=== PATIENT | male | born 1985 | race American Indian/Alaskan Native ===

== ENCOUNTER 2018-11-03 09:46 | Emergency (ER) | payer OTHER ==
[2018-11-03 10:00] VITALS: PULSE 92; TEMP 97.9; BMI 27.4
--- NOTE | 2018-11-03 10:06 | PDOC ---
History of Present Illness - General Chief Complaint: Pain Stated Complaint: NECK PAIN Time Seen by Provider: 11/03/18 10:05 History Source: Patient Exam Limitations: No Limitations - History of Present Illness Initial Comments: 11/03/18 10:26 Patient is a 33-year-old male past medical history of hypertension, who presents to the ER today for right-sided neck pain. Patient states his symptoms began approximately 1 week ago. He states that the pain starts in his neck and radiates down to his right shoulder. Patient states that he works in construction, however denies recent trauma or overuse injury. He states he recently did some new activity including crawling into small spaces and climbing on ladders. He states that it hurts to move his head [id number]. Denies headache, numbness and tingling to the extremities, weakness to the extremities, dizziness, lightheadedness, nausea and vomiting. Triage blood pressure noted 180/100. Pt states he took his amlodipine approximately 30 minutes ago. Timing/Duration: unsure Past History - Travel Traveled outside of the country in the last 30 days: No Close contact w/someone who was outside of country & ill: No - Past Medical History Allergies/Adverse Reactions: Allergies Allergy/AdvReac Type Severity Reaction Status Date / Time No Known Allergies Allergy Verified 11/03/18 09:58 Home Medications: Ambulatory Orders Amlodipine Besylate [Norvasc -] 5 mg PO PRN 11/03/18 Diazepam [Valium] 5 mg PO HS #7 tablet MDD 1 11/03/18 Ibuprofen 800 mg PO TID #30 tablet 11/03/18 COPD: No HTN: Yes - Immunization History Immunization Up to Date: Yes - Suicide/Smoking/Psychosocial Hx Smoking Status: No Smoking History: Smoker current status UNK Number of Cigarettes Smoked Daily: 0 Hx Alcohol Use: No Drug/Substance Use Hx: No Substance Use Type: None Review of Systems - Review of Systems Able to Perform ROS?: Yes Comments:: 11/03/18 10:18 CONSTITUTIONAL: Absent: fever, chills, diaphoresis, generalized weakness, malaise, loss of appetite HEENT: Absent: rhinorrhea, nasal congestion, throat pain, throat swelling, difficulty swallowing, mouth swelling, ear pain, eye pain, visual Changes CARDIOVASCULAR: Absent: chest pain, loss of consciousness, palpitations, irregular heart rate, peripheral edema RESPIRATORY: Absent: cough, shortness of breath, dyspnea with exertion, orthopnea, wheezing, stridor, hemoptysis GASTROINTESTINAL: Absent: abdominal pain, abdominal distension, nausea, vomiting, diarrhea, constipation, melena, hematochezia GENITOURINARY: Absent: dysuria, frequency, urgency, hesitancy, hematuria, flank pain, genital pain MUSCULOSKELETAL: Present: R sided neck pain Absent: myalgia, arthralgia, joint swelling SKIN: Absent: rash, itching, pallor HEMATOLOGIC/IMMUNOLOGIC: Absent: easy bleeding, easy bruising, lymphadenopathy, frequent infections ENDOCRINE: Absent: unexplained weight gain, unexplained weight loss, heat intolerance, cold intolerance NEUROLOGIC: Absent: headache, focal weakness or paresthesias, dizziness, unsteady gait, seizure, mental status changes, bladder or bowel incontinence PSYCHIATRIC: Absent: anxiety, depression, suicidal or homicidal ideation, hallucinations. Is the patient limited Indonesian proficient: No *Physical Exam - Vital Signs Last Vital Signs Temp Pulse Resp BP Pulse Ox 97.9 F 92 H 18 180/108 H 98 11/03/18 09:59 11/03/18 09:59 11/03/18 09:59 11/03/18 09:59 11/03/18 09:59 - Physical Exam Comments: 11/03/18 10:18 GENERAL: Well developed, well nourished. Awake and alert. No acute distress. HEENT: Normocephalic, atraumatic. PERRLA, EOMI. No conjunctival pallor. Sclera are non- icteric. Moist mucous membranes. Oropharynx is clear. NECK: TTP of the R parasinous muscles. Supple. Full ROM. No JVD. Carotid pulses 2+ and symmetric, without bruits. No thyromegaly. No lymphadenopathy. CARDIOVASCULAR: Regular rate and rhythm. No murmurs, rubs, or gallops. Distal pulses are 2+ and symmetric. PULMONARY: No evidence of respiratory distress. Lungs clear to auscultation bilaterally. No wheezing, rales or rhonchi. ABDOMINAL: Soft. Non-tender. Non-distended. No rebound or guarding. No organomegaly. Normoactive bowel sounds. MUSCULOSKELETAL Normal range of motion at all joints. No bony deformities or tenderness. No CVA tenderness. EXTREMITIES: No cyanosis. No clubbing. No edema. No calf tenderness. SKIN: Warm and dry. Normal capillary refill. No rashes. No jaundice. NEUROLOGICAL: Alert, awake, appropriate. Cranial nerves 2-12 intact. No deficits to light touch and temperature in face, upper extremities and lower extremities. No motor deficits in the in face, upper extremities and lower extremities. Normoreflexic in the upper and lower extremities. Normal speech. Toes are down- going bilaterally. Gait is normal without ataxia. PSYCHIATRIC: Cooperative. Good eye contact. Appropriate mood and affect. Moderate Sedation - Procedure Monitoring Vital Signs: Procedure Monitoring Vital Signs Temperature 97.9 F 11/03/18 09:59 Pulse Rate 92 H 11/03/18 09:59 Respiratory Rate 18 11/03/18 09:59 Blood Pressure 180/108 H 11/03/18 09:59 O2 Sat by Pulse Oximetry (%) 98 11/03/18 09:59 Medical Decision Making - Medical Decision Making 11/03/18 12:17 Patient is a 33-year-old male with past medical history of hypertension, who presents to the ER for one week of left-sided neck pain. On exam tenderness to palpation of the left trapezius, and post insertion of the neck and shoulder. Pain worse with movement Blood pressure elevated 170/100. I suspect this is because patient takes his blood pressure medication on an as-needed basis. Given symptoms lasting one week and reproducible low suspicion for dissection at this time. X-ray shows no acute pathology or fracture Patient reports relief of symptoms with lidocaine patch, Valium and Toradol. Most likely a musculoskeletal strain Advised patient to take his blood pressure medication every day given the high readings today. Pt denies headache, chest pain and shortness of breath at this time. Discharge home with PCP follow-up for both his blood pressure and neck pain I discussed the physical exam findings, ancillary test results and final diagnoses with the patient. I answered all of the patient's questions. The patient was satisfied with the care received and felt comfortable with the discharge plan and treatment plan. The Patient agrees to follow up with the primary care physician/specialist within 24-72 hours. Return precautions were given. *DC/Admit/Observation/Transfer Diagnosis at time of Disposition: Neck pain - Discharge Dispostion Disposition: HOME Condition at time of disposition: Stable Decision to Admit order: No - Prescriptions Prescriptions: Diazepam [Valium] 5 mg PO HS #7 tablet MDD 1 Ibuprofen 800 mg PO TID #30 tablet - Referrals Referrals: Jaswinder Sales MD [Primary Care Provider] - - Patient Instructions Printed Discharge Instructions: DI for Neck Pain Additional Instructions: You have neck pain. Your x-ray today showed no acute fracture. Please take Motrin 800 mg every 8 hours for one week. Take her amlodipine daily while taking the Motrin. Take the Valium before bed. Do not drive or drink alcohol after taking this medication as it may make you drowsy. He may apply heat to the area. Please help with her primary care doctor this week. Return to the ER if you have headache, nose and tingling down the extremities, weakness, blurry vision, or if you have any changes in your symptoms. - Post Discharge Activity Forms/Work/School Notes: Back to Work
[2018-11-03] MEDS ORDERED: diazePAM 2 MG TABLET PO ONE (10:14)
[2018-11-03] MEDS ORDERED: LIDOCAINE 5% TOPICAL PATCH TP ONE (10:14)
[2018-11-03] MEDS ORDERED: KETOROLAC TROMETHAMINE 60 MG/2 ML VIAL IM ONE (10:14)
[2018-11-03] MEDS ORDERED: diazePAM 2 MG TABLET ONE (10:25)
[2018-11-03] MEDS ORDERED: LIDOCAINE 5% TOPICAL PATCH ONE (10:26)
[2018-11-03] MEDS ORDERED: KETOROLAC TROMETHAMINE 60 MG/2 ML VIAL ONE (10:26)
--- NOTE | 2018-11-03 11:21 | PDOC ---
*Physical Exam - Vital Signs Last Vital Signs Temp Pulse Resp BP Pulse Ox 97.9 F 92 H 18 180/108 H 98 11/03/18 09:59 11/03/18 09:59 11/03/18 09:59 11/03/18 09:59 11/03/18 09:59 ED Treatment Course - Medications Given in the ED: ED Medications Discontinued Medications Generic Name Dose Route Start Last Admin Trade Name Brian PRN Reason Stop Dose Admin Diazepam 2 mg 11/03/18 10:14 11/03/18 10:36 Valium - PO 11/03/18 10:15 2 mg ONCE ONE Administration Ketorolac Tromethamine 60 mg 11/03/18 10:14 11/03/18 10:36 Toradol Injection - IM 11/03/18 10:15 60 mg ONCE ONE Administration Lidocaine 1 patch 11/03/18 10:14 11/03/18 10:36 Lidoderm Patch - TP 11/03/18 10:15 1 patch ONCE ONE Administration Medical Decision Making - Medical Decision Making 11/03/18 11:21 33 yo M presenting to the ER with a complaint of left neck pain Present for 1 week Gradual onset Pain with palpation No neurologic changes, weakness, numbness No trauma Pt seen by Midlevel Provider under my direct supervision Pt interviewed and examined Ancillary studies reviewed Lidoderm placed Pain meds given I agree with plan as outlined by Midlevel Provider 11/03/18 11:50 11/03/18 12:28 *DC/Admit/Observation/Transfer Diagnosis at time of Disposition: Neck pain - Discharge Dispostion Disposition: HOME Condition at time of disposition: Stable - Prescriptions Prescriptions: Diazepam [Valium] 5 mg PO HS #7 tablet MDD 1 Ibuprofen 800 mg PO TID #30 tablet - Referrals Referrals: Jaswinder Sales MD [Primary Care Provider] - - Patient Instructions Printed Discharge Instructions: DI for Neck Pain Additional Instructions: You have neck pain. Your x-ray today showed no acute fracture. Please take Motrin 800 mg every 8 hours for one week. Take her amlodipine daily while taking the Motrin. Take the Valium before bed. Do not drive or drink alcohol after taking this medication as it may make you drowsy. He may apply heat to the area. Please help with her primary care doctor this week. Return to the ER if you have headache, nose and tingling down the extremities, weakness, blurry vision, or if you have any changes in your symptoms. - Post Discharge Activity Forms/Work/School Notes: Back to Work
[2018-11-03 12:35] VITALS: BP 169/109
[2018-11-03] MEDS ORDERED: LIDOCAINE PATCH REMOVAL MC SCH (22:00)
== END 2018-11-03 13:21 | disposition home or self-care (01) ==
LOC: JER 09:46
PROC: 3E0233Z Introduction of Anti-inflammatory into Muscle, Percutaneous Approach (ICD-10-PCS; principal; 2018-11-03)
DX: M54.2 Cervicalgia (principal); I10 Essential (primary) hypertension
CPT/HCPCS: 72050-TC-FY; 99282-25

== ENCOUNTER 2019-05-01 18:58 | Emergency (ER) | payer OTHER ==
[2019-05-01 19:04] VITALS: BP 143/84; PULSE 61; TEMP 97.7; BMI 28.2
--- NOTE | 2019-05-01 19:05 | PDOC ---
Rapid Medical Evaluation Chief Complaint: Hemoptysis Time Seen by Provider: 05/01/19 19:01 Medical Evaluation: Allergies Allergy/AdvReac Type Severity Reaction Status Date / Time No Known Allergies Allergy Verified 11/03/18 09:58 05/01/19 19:04 This patient had a brief in-person evaluation in triage cc: coughing x 2 weeks, coughing with bloody sputum today complaining of shortness of breath HPI: NAD clear breaths bilateral diminished breathing orders: chest xray This patient will proceed to ED for further evaluation. Discharge Disposition - Diagnosis Coughing up blood - Referrals - Patient Instructions - Post Discharge Activity
[2019-05-01] MEDS ORDERED: predniSONE 10 MG TABLET (UD) PO ONE (20:38)
[2019-05-01] MEDS ORDERED: ALBUTEROL SO4 2.5/IPRATROPIUM 0.5 INH SOL 3 ML VIAL.NEB. NEB ONE ×2 (20:38→21:01)
--- NOTE | 2019-05-01 20:49 | PDOC ---
History of Present Illness - General Chief Complaint: Hemoptysis Stated Complaint: COUGHING/SPUTUM WITH BLOOD Time Seen by Provider: 05/01/19 19:01 - History of Present Illness Initial Comments: 05/01/19 20:39 33m with pmh of htn presetns to the Ed with 2 weeks of daily coughing as blood tinge sputum last night and this morning. Has had similar symptoms before in 2016 treated in this ED, diagnosed with simple URI. Patient also complains that he has decreased exercise tolerance since then. Coworker had the same symptoms 2 weeks ago that self-resolved. 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 No contact with bat feces as far as knows. No contacts with people from out of the country. No recent travel. No fever, chills, weight loss. Past History - Past Medical History Allergies/Adverse Reactions: Allergies Allergy/AdvReac Type Severity Reaction Status Date / Time No Known Allergies Allergy Verified 05/01/19 19:04 Home Medications: Ambulatory Orders Amlodipine Besylate [Norvasc -] 5 mg PO PRN 11/03/18 Diazepam [Valium] 5 mg PO HS #7 tablet MDD 1 11/03/18 Ibuprofen 800 mg PO TID #30 tablet 11/03/18 predniSONE [Deltasone -] 30 mg PO DAILY #3 tablet 05/01/19 COPD: No HTN: Yes - Immunization History Immunization Up to Date: Yes - Suicide/Smoking/Psychosocial Hx Smoking Status: No Smoking History: Never smoked Number of Cigarettes Smoked Daily: 0 Information on smoking cessation initiated: No Hx Alcohol Use: No Drug/Substance Use Hx: No Substance Use Type: None Review of Systems - Review of Systems Able to Perform ROS?: Yes Is the patient limited Icelandic proficient: No Constitutional: No: Symptoms Reported HEENTM: No: Symptoms Reported Respiratory: Yes: Cough, Hemoptysis Cardiac (ROS): No: Symptoms Reported ABD/GI: No: Symptoms Reported : No: Symptoms Reported Musculoskeletal: No: Symptoms Reported Integumentary: No: Symptoms Reported Neurological: No: Symptoms reported All Other Systems: Reviewed and Negative *Physical Exam - Vital Signs Last Vital Signs Temp Pulse Resp BP Pulse Ox 97.7 F 61 19 143/84 99 05/01/19 19:02 05/01/19 19:02 05/01/19 19:02 05/01/19 19:02 05/01/19 19:02 - Physical Exam General Appearance: Yes: Nourished, Appropriately Dressed. No: Apparent Distress HEENT: positive: EOMI, KANE, Normal ENT Inspection Respiratory/Chest: positive: Lungs Clear. negative: Chest Tender, Normal Breath Sounds, Respiratory Distress Cardiovascular: positive: Regular Rhythm, Regular Rate, S1, S2 Gastrointestinal/Abdominal: positive: Normal Bowel Sounds, Flat, Soft. negative : Tender Musculoskeletal: positive: Normal Inspection. negative: CVA Tenderness Extremity: positive: Normal Capillary Refill, Normal Inspection, Normal Range of Motion Integumentary: positive: Normal Color, Dry, Warm Neurologic: positive: Fully Oriented, Alert, Normal Mood/Affect, Normal Response , Motor Strength 5/5 Medical Decision Making - Medical Decision Making 05/01/19 20:51 33m with dry cough for 2 weeks and hemoptysis since last night, 2 episodes. Considering lung cancer, tuberculosis, pneumonia, bronchiolitis, anemia Xray negative for acute pathology. Will give patient Duoneb treatment and Prednisone. Likely Viral bronchitis. Patient feels better with treatment. Likely will discharge with follow up with Dr. Sales in 2 days. *DC/Admit/Observation/Transfer Diagnosis at time of Disposition: Coughing up blood, Viral bronchitis - Discharge Dispostion Disposition: HOME Condition at time of disposition: Improved Decision to Admit order: No - Referrals Referrals: Jaswinder Sales MD [Primary Care Provider] - - Patient Instructions Printed Discharge Instructions: DI for Chronic Bronchitis Additional Instructions: Follow up with Dr. Sales within the next 2-3 days. Come back to the emergency department for any new, worsening or concerning symptom. - Post Discharge Activity
--- NOTE | 2019-05-01 20:50 | PDOC ---
Documentation entered by Germania Ferrera SCRIBE, acting as scribe for Marlys Munguia MD. Marlys Munguia MD: This documentation has been prepared by the Maisha dai Brenda, SCRIBE, under my direction and personally reviewed by me in its entirety. I confirm that the documentation accurately reflects all work, treatment, procedures, and medical decision making performed by me. Attending Attestation - Resident Resident Name: Robert Harris - ED Attending Attestation I have performed the following: I have examined & evaluated the patient, The case was reviewed & discussed with the resident, I agree w/resident's findings & plan, Exceptions are as noted - HPI HPI: 05/01/19 20:30 The patient is a 33 year old male, with a significant PMH of HTN who presents to the emergency department with 2 weeks of coughing. The patient reports progressively worsening cough, which progressed into blood sputum today, prompting his arrival to the ED. The patient also endorses shortness of breath. The patient denies chest pain, headache and dizziness. Denies fever, chills, nausea, vomiting, diarrhea and constipation. Denies dysuria, frequency, urgency and hematuria. Allergies: NKA Social history: No reported history of tobacco use, alcohol use or illicit drug use. PCP: Mónica - Physicial Exam PE: 05/01/19 20:47 well-nourished well-developed 33-year-old male presents with complaint of 2 weeks of dry hacking cough. Head normocephalic/atraumatic. Neck is supple Lungs are clear to auscultation, no wheezing and no appreciable crackles CVS regular rate and rhythm S1, S2 no CVA tenderness Abdomen soft, nontender. Skin warm and dry. extremities no pitting edema, no deformities Neuro alert and oriented 3, ambulatory, no gross focal neural deficits - Medical Decision Making 05/01/19 20:47 -year-old male who states that his coworkers have had a dry hacking cough and he has had one for 2 weeks. he states this it does not smoke tobacco. positive sick coworkers No history of asthma e denies fever or chills, nausea, vomiting chest pain or exertional dyspnea. Chest x-ray no acute pulmonary disease. Impression bronchitis, cough, viral illness. Plan try bronchodilators to see if this helps him symptomatically. Discharge home with follow up with Dr. Sales
[2019-05-01] MEDS ORDERED: predniSONE 10 MG TABLET (UD) ONE (21:01)
== END 2019-05-01 21:46 | disposition home or self-care (01) ==
LOC: JER 18:58
PROC: 3E0F7GC Introduction of Other Therapeutic Substance into Respiratory Tract, Via Natural or Artificial Opening (ICD-10-PCS; principal; 2019-05-01)
DX: J40 Bronchitis, not specified as acute or chronic (principal); B97.89 Other viral agents as the cause of diseases classified elsewhere; I10 Essential (primary) hypertension
CPT/HCPCS: 71046-TC-FY; 99281-25

== ENCOUNTER 2020-09-06 09:34 | Emergency (ER) | payer OTHER ==
[2020-09-06 11:12] VITALS: BP 130/69; PULSE 95; TEMP 98.1; BMI 25.8
== END 2020-09-06 11:12 | disposition home or self-care (01) ==
LOC: JERFT 09:34
DX: U07.1 COVID-19 (principal); R50.81 Fever presenting with conditions classified elsewhere
CPT/HCPCS: 99283-25; C9803; U0003

== ENCOUNTER 2022-02-01 16:22 | Emergency (ER) | payer BC, OTHER ==
[2022-02-01 16:43] VITALS: BP 113/75; PULSE 112; TEMP 99.2; BMI 27.4
== END 2022-02-01 16:49 | disposition home or self-care (01) ==
LOC: FER 16:22
DX: R05.1 Acute cough (principal)
CPT/HCPCS: 99281-25

== ENCOUNTER 2022-02-04 17:27 | Emergency (ER) | payer BC ==
[2022-02-04 17:43] VITALS: BP 145/86; PULSE 82; TEMP 98.2; BMI 28.0
== END 2022-02-04 18:28 | disposition home or self-care (01) ==
LOC: FER 17:27
DX: R05.9 Cough, unspecified (principal)
CPT/HCPCS: 0241U-QW; 71046-TC-FY; 99284-25

== ENCOUNTER 2022-05-26 20:04 | Emergency (ER) | payer BC, OTHER ==
[2022-05-26] MEDS ORDERED: predniSONE 20 MG TABLET (UD) PO ONE (20:19)
[2022-05-26] MEDS ORDERED: predniSONE 20 MG TABLET (UD) ONE (20:21)
[2022-05-26 20:24] VITALS: BP 154/110; PULSE 79; RESP 17; TEMP 98.2; BMI 28.2
== END 2022-05-26 20:25 | disposition home or self-care (01) ==
LOC: FER 20:04
DX: L23.7 Allergic contact dermatitis due to plants, except food (principal)
CPT/HCPCS: 99283-25

== ENCOUNTER 2022-09-26 06:05 | Emergency (ER) | payer BC, OTHER ==
[2022-09-26 06:22] VITALS: TEMP 98; BMI 29.0
[2022-09-26] MEDS ORDERED: FLUORESCEIN NA 1 EA STRIP OU ONE (07:24)
[2022-09-26] MEDS ORDERED: TETRACAINE 0.5% OPHTH SOLN 2 ML BOTTLE OU ONE (07:24)
[2022-09-26] MEDS ORDERED: TETRACAINE 0.5% OPHTH SOLN 2 ML BOTTLE ONE (07:36)
[2022-09-26] MEDS ORDERED: FLUORESCEIN NA 1 EA STRIP ONE (07:36)
[2022-09-26] MEDS ORDERED: DIPHTH,PERTUSS(ACELL),TET 0.5 ML DISP.SYRIN IM ONE ×2 (07:50→08:06)
[2022-09-26 08:26] VITALS: BP 166/109; PULSE 85; RESP 16
== END 2022-09-26 09:13 | disposition home or self-care (01) ==
LOC: JER 06:05
PROC: 3E0234Z Introduction of Serum, Toxoid and Vaccine into Muscle, Percutaneous Approach (ICD-10-PCS; principal; 2022-09-26)
DX: S05.01XA Injury of conjunctiva and corneal abrasion without foreign body, right eye, initial encounter (principal); W45.8XXA Other foreign body or object entering through skin, initial encounter
CPT/HCPCS: 90715; 99284-25